=== PATIENT | female | born 2000 | race Caucasian/White ===

== ENCOUNTER 2020-10-13 15:52 | Emergency (ER) | payer BC, MEDICAID ==
[2020-10-13 16:50] VITALS: BP 116/46; PULSE 85
--- NOTE | 2020-10-13 17:10 | EDM.PDOC ---
ED HPI GENERAL MEDICAL PROBLEM - General Chief Complaint: Bite:Animal, Insect Stated Complaint: BUG BITE LEFT SHOULDER Time Seen by Provider: 10/13/20 16:29 Source of Information: Reports: Patient History Limitations: Reports: No Limitations - History of Present Illness INITIAL COMMENTS - FREE TEXT/NARRATIVE: 20 yo female present with an insect bite to the left posterior shoulder. - Related Data Allergies Allergy/AdvReac Type Severity Reaction Status Date / Time No Known Allergies Allergy Verified 10/13/20 16:27 Home Meds: Home Meds NK [No Known Home Meds] 10/13/20 [History] Past Medical History HEENT History: Reports: Impaired Vision Other HEENT History: wears glasses Cardiovascular History: Reports: Heart Murmur Gastrointestinal History: Reports: Cholelithiasis, GERD, PUD Genitourinary History: Reports: Retention, Urinary, UTI, Recurrent [employer] History: Reports: Other (See Below) Other [employer]ATOR History: right ovarian cyst Musculoskeletal History: Reports: Fracture Psychiatric History: Reports: Anxiety - Infectious Disease History Infectious Disease History: Reports: Chicken Pox - Past Surgical History HEENT Surgical History: Reports: Adenoidectomy, Myringotomy w Tube(s), Tonsillectomy Cardiovascular Surgical History: Reports: None GI Surgical History: Reports: Cholecystectomy, EGD Female Surgical History: Reports: None Social & Family History - Family History Cardiac: Reports: RI, Stent : Reports: UTI, Recurrent Other Family History: Mother was born with a hole in her bladder when born. Neurological: Reports: CVA Oncologic: Reports: Other (See Below) Other Oncologic Family History: small cell carcinoma. Leukemia ED ROS GENERAL - Review of Systems Review Of Systems: See Below Constitutional: Denies: Fever, Chills Respiratory: Denies: Shortness of Breath Cardiovascular: Denies: Chest Pain Skin: Reports: Other (insect bite) ED EXAM, ANIMAL BITE - Physical Exam Exam: See Below Exam Limited By: No Limitations General Appearance: Alert, WD/WN, No Apparent Distress Respiratory/Chest: No Respiratory Distress Skin Exam: Other (left posterior shoulder 1 cm area of microvesicles surrounded by 3 cm mild erythema) Course - Vital Signs Last Recorded V/S: Last Vital Signs Temp 36.4 C 10/13/20 16:32 Pulse 85 10/13/20 16:32 Resp 14 10/13/20 16:32 BP 116/46 L 10/13/20 16:32 Pulse Ox 98 10/13/20 16:32 Departure - Departure Time of Disposition: 17:10 Disposition: Home, Self-Care 01 Condition: Good Clinical Impression: Insect bite of trunk - Discharge Information *PRESCRIPTION DRUG MONITORING PROGRAM REVIEWED*: Not Applicable *COPY OF PRESCRIPTION DRUG MONITORING REPORT IN PATIENT PO: Not Applicable Instructions: Insect Bite, Adult, [id number] Referrals: PCP,None [Primary Care Provider] - Forms: ED Department Discharge Additional Instructions: apply over the counter steroid cream (hydrocortisones) Sepsis Event Note (ED) - Evaluation Sepsis Screening Result: No Definite Risk - Focused Exam Vital Signs: Vital Signs Temp Pulse Resp BP Pulse Ox 10/13/20 16:32 36.4 C 85 14 116/46 L 98
== END 2020-10-13 17:28 | disposition home or self-care (01) ==
LOC: JP.ED 15:52
DX: S40.262A Insect bite (nonvenomous) of left shoulder, initial encounter (principal); W57.XXXA Bitten or stung by nonvenomous insect and other nonvenomous arthropods, initial encounter
CPT/HCPCS: 99281; 99283

== ENCOUNTER 2022-03-25 15:42 | Emergency (ER) | payer BC ==
[2022-03-25 16:00] VITALS: BP 110/64; PULSE 108
[2022-03-25 17:04] LABS: ESTIMATED GFR 92 mL/min (>60)
[2022-03-25] MEDS ORDERED: Ondansetron 4 MG/2 ML SDV IVPUSH ONE (17:27)
[2022-03-25] MEDS ORDERED: Sodium Chloride 0.9% 10 ML Syringe FLUSH PRN (17:27)
[2022-03-25] MEDS ORDERED: Ketorolac 30 MG/ML SDV IVPUSH ONE (17:27)
[2022-03-25] MEDS ORDERED: Sodium Chloride 0.9% 50 ML IV ONE (17:32)
[2022-03-25] MEDS ORDERED: Iopamidol 612 MG/ML 100 ML Bottle IV ONE (17:32)
[2022-03-25] MEDS ORDERED: Ondansetron 4 MG Tab.DIS PO ONE (17:37)
== END 2022-03-25 17:49 | disposition home or self-care (01) ==
LOC: JP.ED 15:42
DX: K52.9 Noninfective gastroenteritis and colitis, unspecified (principal); Z90.49 Acquired absence of other specified parts of digestive tract
CPT/HCPCS: 36415; 80053; 81001; 81025; 83690; 85025; 99284